=== PATIENT | female | born 1990 ===

== ENCOUNTER → 2020-02-03 | Outpatient (CLI) | payer OTHER ==
[~2020-02-03] MED LIST: CALCIUM CARBON650 M2; IBU800 M1 PO; PRENATAL VITAMI1 TA3 PO; WELLBUTRIN 75MG75 MG PO
== END | disposition still patient (30) ==
LOC: ZCOL.LAB
DX: Z20.828 Contact with and (suspected) exposure to other viral communicable diseases (principal)

== ENCOUNTER 2020-02-11 00:11 | Inpatient (IN) | payer OTHER ==
[~2020-02-11] VITALS: Ht 175.3 cm; Wt 140.5 kg
[2020-02-11] VITALS (50 sets, daily range): BP systolic 118–168; BP diastolic 58–91; PULSE 71–120; TEMP 98–98.8
--- NOTE | 2020-02-11 00:20 | NUR ---
0020- PT PRESENTS TO LDR COMPLAINING OF LEAKING AMNIOTIC FLUID. AMBULATORY TO ROOM LR4, CHANGED INTO GOWN. 0022- EFM X2 APPLIED. PT REPORTS GUSH OF FLUID AT 2320. STATES SHE HAD BEEN CHRISTOPHE DURING THE DAY BUT CURRENTLY DIDN'T FEEL MANY. STATES ALSO THAT BABY HAS BEEN MOVING LESS THIS EVENING. PLAN OF CARE FOR LABOR CHECK DISCUSSED AND QUESTIONS ANSWERED. 0030- AMNITRACE POSITIVE. SVE BY THIS NURSE WITH LARGE GUSH OF CLEAR FLUID DURING CHECK. PLAN OF CARE DISCUSSED AND QUESTIONS ANSWERED. 0040- NURSING ADMISSION HISTORY AND ASSESSMENT COMPLETE. 0104- DR CONTRERAS CALLED AND UPDATED ON PT HISTORY, COMPLAINT, AMNITRACE, SVE, STRIP, DIFFICULTY MONITORING CONTINUOUS FHT'S, AND VITAL SIGNS. ORDERS FOR ADMISSION, PEN G FOR GBS+, MAY HAVE STADOL OR EPIDURAL WHEN PT DESIRES, AND AUGMENTATION WITH PITOCIN IF NO CHANGE IN CONTRACTIONS OR CERVICAL DILATION IN 4 HOURS. 0120- PT UPDATED ON PLAN OF CARE. 0130- IV START TO LEFT HAND CHARTED. LAB DRAWN. LR INFUSING AND PEN G INFUSING.
[2020-02-11] MEDS ORDERED: PRENATAL VITAMI1 TA3 PO (00:43)
[2020-02-11] MEDS ORDERED: WELLBUTRIN 75MG75 MG PO (00:44)
[2020-02-11] MEDS ORDERED: CALCIUM CARBON650 M2 (00:44)
[2020-02-11 02:53] LABS: BASO % 0.1 % (0.0-2.0); EOS # 0.2 (0.0-0.7); EOS % 1.1 % (0-4.0); GRAN % 73.4 % (42.2-75.2); HEMOGLOBIN 11.1 g/dl (12.5-16.0); LYMPH # 2.5 (1.2-3.4); LYMPH % 18.7 % (20.0-51.0); MEAN CELL VOLUME 87 fl (80.0-100.0); MEAN CORPUSCULAR HEMOGLOBIN 28 pg (27.0-31.0); MEAN CORPUSCULAR HGB CONC 32 g/dl (33.0-37.0); MEAN PLATELET VOLUME 11.8 fl (7.4-10.4); MONO # 0.9 (0.1-0.6); MONO % 6.3 % (1.7-9.3); PLATELET COUNT 225 K/mm3 (130-400); RED BLOOD COUNT 3.95 M/mm3 (4.10-5.30); REDCELL DISTRIBUTION WIDTH-CV 13.9 % (11.5-14.5)
[2020-02-11 02:54] LABS: HEMATOCRIT 34.4 % (37.0-47.0)
--- NOTE | 2020-02-11 13:06 | NUR ---
1300 PATIENT FEELING SOME PRESSURE. SVE 1NT LIP/100/-1. PATIENT SITTING UPRIGHT AT THIS TIME. DR ANDINO CALLED AN DUPDATED. NO NEW ORDERS GIVEN , TO CALL SOON NEEDED FOR DELIVERY
--- NOTE | 2020-02-11 14:51 | NUR ---
[id number] patient complete will start pushing with contractions. Dr. Molina called and updated on pushing to head to hospital.
--- NOTE | 2020-02-11 14:52 | NUR ---
1400 bashir out, continue to push. [address] nolasco at bedside for delivery. [address] entering room. patient pushes and delivers at 1402. very tearful and high anxiety noted. lidocaine used for pain relief for suture repair. tolerates well. 1408 placenta delivered and pitocin started at 333 per protocol. 350 ebl noted. patient rests in bed holding baby. fundus firm.
[2020-02-12 02:00] VITALS: BP 124/70; PULSE 88; TEMP 98.1
[2020-02-12 08:05] VITALS: BP 127/73; PULSE 80; TEMP 98.7
--- NOTE | 2020-02-12 09:05 | NUR ---
Initial visit attempt; Family resting, [place] Operator left card of congratulations for the of their daughter and information regarding the availability of spiritual care at our hospital.
[2020-02-12 17:39] VITALS: BP 135/74; PULSE 79; TEMP 98.7
--- NOTE | 2020-02-12 18:30 | NUR ---
Report recieved. Resting in bed at this time. Updated whiteboard and reviewed POC. Questions invited and answered.
[2020-02-12 18:55] VITALS: BP 134/85; PULSE 100; TEMP 97.5
[2020-02-13 06:48] VITALS: BP 132/82; PULSE 78; TEMP 97.8
[2020-02-13] MEDS ORDERED: IBU800 M1 PO (09:48)
== END 2020-02-13 13:27 | disposition home or self-care (01) | DRG 807 ==
LOC: LDRO 00:11 → LDR 00:11 → LDRO 01:03 → OB 01:13 → LDR 01:13 → OB 15:11
PROVIDERS: ADMIT Obstetrics & Gynecology
PROC: 10E0XZZ Delivery of Products of Conception, External Approach (ICD-10-PCS; principal; 2020-02-11)
PROC: 0KQM0ZZ Repair Perineum Muscle, Open Approach (ICD-10-PCS; 2020-02-11)
DX: O99.344 Other mental disorders complicating childbirth (principal); Z37.0 Single live birth; F41.8 Other specified anxiety disorders; O99.824 Streptococcus B carrier state complicating childbirth; O99.214 Obesity complicating childbirth; E66.9 Obesity, unspecified; Z3A.38 38 weeks gestation of pregnancy; O70.1 Second degree perineal laceration during delivery; O99.02 Anemia complicating childbirth; F90.9 Attention-deficit hyperactivity disorder, unspecified type; K58.9 Irritable bowel syndrome, unspecified
CPT/HCPCS: J2210; J2405; J2540; J2590; J7120